=== PATIENT | male | born 1975 | race Asian ===

== ENCOUNTER → 2016-09-22 | Outpatient (CLI) | payer BC, OTHER ==
[~2016-09-22] MED LIST: ALLERGY INJECTIONS
--- NOTE | 2016-09-23 10:35 | DIAGNOSTIC IMAGING REPORT ---
LEFT RIBS INCLUDING PA ERECT CHEST CLINICAL HISTORY: LEFT SIDE RIB PAIN trauma COMPARISON STUDY: No previous studies for comparison. FINDINGS: The erect chest reveals no pneumothorax. There is no focal pulmonary consolidation. There are no pleural effusions. No left-sided rib fractures are visualized. IMPRESSION: No evidence of pneumothorax. No left-sided rib fractures are visualized. Electronically signed by: Cameron Sesay M.D. 09/23/2016 10:34 AM Dictated Date/Time: 09/23/2016 10:33 AM
== END | disposition home or self-care (01) ==
LOC: C.RDSM 15:00
PROVIDERS: ATTEND Physical Medicine & Rehabilitation Sports Medicine
DX: S20.212A Contusion of left front wall of thorax, initial encounter (principal); X58.XXXA Exposure to other specified factors, initial encounter